=== PATIENT | male | born 1980 | race Caucasian/White ===

== ENCOUNTER → 2016-07-28 | Outpatient (CLI) | payer OTHER ==
--- NOTE | 2016-07-28 17:47 | XR ---
EXAMINATION TYPE: XR tibia fibula RT DATE OF EXAM: 07/28/2016 5:43 PM CLINICAL HISTORY: Contusion injury today with pain TECHNIQUE: Two views of the right leg are obtained. COMPARISON: None. FINDINGS: There is no acute fracture or dislocation seen in the right tibia or fibula. The right kn ee and ankle joints appear within normal limits. The overlying soft tissue appears unremarkable. IMPRESSION: There is no acute fracture or dislocation seen in the right tibia or fibula.
== END | disposition home or self-care (01) ==
LOC: RADXRMAIN 17:29
PROVIDERS: ATTEND Emergency Medicine
DX: S80.11XA Contusion of right lower leg, initial encounter (principal)

== ENCOUNTER 2017-09-24 14:03 | Emergency (ER) | payer BC ==
--- NOTE | 2017-09-24 14:26 | ED ---
General Adult HPI - General Chief complaint: Psychiatric Symptoms Stated complaint: Mental Health Time Seen by Provider: 09/24/17 14:21 Source: patient, RN notes reviewed Mode of arrival: ambulatory Limitations: no limitations - History of Present Illness Initial comments: Patient 37-year-old male presented to the emergency room today with a chief complaint of suicidal ideation. Patient does not that he was driving on the road. This had thoughts of feeling off. Patient states they're very vivid. Patient states she's never had such lots so clear before. Patient denies any homicidal thoughts or plans. He denies any other complaints. He does admit that it's been a year or 2 since he has seen a psychiatrist. He states he gets his medications from his family physician. He denies any other complaints or symptoms. Patient denies any recent fever, chills, shortness of breath, chest pain, back pain, abdominal pain, nausea or vomiting, numbness or tingling, dysuria or hematuria, changes, or any other complaints. - Related Data Home Medications Medication Instructions Recorded Confirmed Atorvastatin Calcium [Lipitor] 40 mg PO HS 09/24/17 09/24/17 Fenofibrate [Lofibra] 160 mg PO DAILY 09/24/17 09/24/17 Sertraline [Zoloft] 100 mg PO DAILY 09/24/17 09/24/17 Allergies Allergy/AdvReac Type Severity Reaction Status Date / Time niacin AdvReac flushing Verified 09/24/17 14:38 Review of Systems ROS Statement: Those systems with pertinent positive or pertinent negative responses have been documented in the HPI. ROS Other: All systems not noted in ROS Statement are negative. Past Medical History Past Medical History: No Reported History History of Any Multi-Drug Resistant Organisms: None Reported Past Surgical History: Cholecystectomy Past Psychological History: Depression Smoking Status: Never smoker Past Alcohol Use History: Occasional Past Drug Use History: None Reported General Exam - General Exam Comments Initial Comments: General: The patient is awake and alert, in no distress, and does not appear acutely ill. Eye: extra-ocular movements are intact. No nystagmus. There is normal conjunctiva bilaterally. No signs of icterus. Ears, nose, mouth and throat: There are moist mucous membranes and no oral lesions. Neck: The neck is supple, there is no tenderness or JVD. Cardiovascular: There is a regular rate and rhythm. No murmur, rub or gallop is appreciated. Respiratory: Lungs are clear to auscultation, respirations are non-labored, breath sounds are equal. No wheezes, stridor, rales, or rhonchi. Musculoskeletal: Normal ROM, no tenderness. Strength 5/5. Sensation intact. Neurological: A&O x 3. CN II-XII intact, There are no obvious motor or sensory deficits. Coordination appears grossly intact. Speech is normal. Skin: Skin is warm and dry and no rashes or lesions are noted. Psychiatric: Cooperative. Limitations: no limitations Course Vital Signs 09/24/17 14:12 Temperature 98.7 F Pulse Rate 94 Respiratory 18 Rate Blood Pressure 154/85 O2 Sat by Pulse 96 Oximetry Medical Decision Making - Medical Decision Making Patient was seen by mental health through the emergency room. They have recommendation the follow up all patient. Patient agreeable. Patient will be discharged advised return if any symptoms increase worsen. - Lab Data Lab Results 09/24/17 Range/Units 14:46 Urine Opiates Screen Not Detected (NotDetected) Ur Oxycodone Screen Not Detected (NotDetected) Urine Methadone Screen Not Detected (NotDetected) Ur Propoxyphene Screen Not Detected (NotDetected) Ur Barbiturates Screen Not Detected (NotDetected) U Tricyclic Antidepress Not Detected (NotDetected) Ur Phencyclidine Scrn Not Detected (NotDetected) Ur Amphetamines Screen Not Detected (NotDetected) U Methamphetamines Scrn Not Detected (NotDetected) U Benzodiazepines Scrn Not Detected (NotDetected) Urine Cocaine Screen Not Detected (NotDetected) U Marijuana (THC) Screen Not Detected (NotDetected) Disposition Clinical Impression: Depression Disposition: HOME SELF-CARE Condition: Good Instructions: Depression (ED) Additional Instructions: Please follow-up with mental health as discussed here in the emergency room. Please return if any symptoms increase or worsen or for any other concerns. Is patient prescribed a controlled substance at d/c from ED?: No Referrals: Inocencio Lindsay MD [Primary Care Provider] - 1-2 days Time of Disposition: 15:58
[2017-09-24 15:10] LABS: Amphetamine Screen,Urine Not Detected (NotDetected); Barbiturate Screen,Urine Not Detected (NotDetected); Benzodiazepines Screen,Urine Not Detected (NotDetected); Cocaine Screen,Urine Not Detected (NotDetected); Methadone Screen, Urine Not Detected (NotDetected); Opiate Screen,Urine Not Detected (NotDetected); Oxycodone Screen, Urine Not Detected (NotDetected); Phencyclidine Screen,Urine Not Detected (NotDetected); Tricyclic Antidepressant,Urine Not Detected (NotDetected); Urn Cannabinoid Scrn Not Detected (NotDetected)
[2017-09-24 16:08] VITALS: BP 129/70; PULSE 68; RESP 16; TEMP 97.9
== END 2017-09-24 16:07 | disposition home or self-care (01) ==
LOC: EC 14:03
DX: F32.9 Major depressive disorder, single episode, unspecified (principal); R45.851 Suicidal ideations; Z79.899 Other long term (current) drug therapy; Z88.8 Allergy status to other drugs, medicaments and biological substances
CPT/HCPCS: 80306; 82075; 99284

== ENCOUNTER → 2018-11-24 | Outpatient (CLI) | payer BC ==
--- NOTE | 2018-11-24 20:23 | CONS ---
CONSULTATION DATE OF SERVICE: 11/24/2018 This patient is a 38-year-old gentleman who has been evaluated in [facility] for possible obstructive sleep apnea-hypopnea syndrome. HISTORY OF PRESENT ILLNESS/SLEEP-WAKE EVALUATION: Patient's usual sleep schedule on working days is from midnight until 10 a.m. and on weekends from around 2 a.m. until 12 noon. Sometimes he has problems falling asleep. He has a TV set in the bedroom. He sleeps in different positions with his . He snores and has episodes of stopped breathing during sleep, according to her. He grinds his teeth and has sweating. He wakes up from sleep about 3 times with nocturia. Sometimes he starts to see his dreams right after closing his eyes; possible hypnagogical hallucinations, but no significant daytime sleepiness. [place] Sleepiness Scale is 1. No history of sleep paralysis. PAST MEDICAL HISTORY: Past medical history is positive for: 1. Depression. 2. Anxiety. 3. Hyperlipidemia. 4. Acid reflux. MEDICATIONS: 1. Omeprazole. 2. . 3. Sertraline. 4. Atorvastatin. 5. Fenofibrate. 6. Lorazepam. PAST SURGICAL HISTORY: Cholecystectomy. SOCIAL HISTORY: Negative for smoking. Alcohol consumption occasional. FAMILY HISTORY: Hypertension, heart problems, hyperlipidemia, stroke, acid reflux. REVIEW OF SYSTEMS: Multiple awakenings from sleep. PHYSICAL EXAMINATION: GENERAL: A pleasant gentleman without distress. VITAL SIGNS: BP 144/91, HR 85, RR 16, height 6 feet 2 inches, weight 325 pounds, body mass index 43.9, temperature 98.0, oxygen saturation at room air 94%. HEENT: PERRLA, EOMI. Evaluation of oropharynx showed tongue protrudes midline. Moderate to low position of soft palate. Mallampati II to III. Small oropharyngeal air space. Restriction of nasal breathing. NECK: Supple. No JVD. Thyroid is not palpable. Wide neck; 19-1/4 inches in circumference. LUNGS: Clear to percussion and to auscultation. Good air exchange. No wheezing or rhonchi. HEART: S1, S2 regular. No murmurs, gallops or rubs. ABDOMEN: Obese. EXTREMITIES: No clubbing or cyanosis. PHOTOGRAPHIC INTELLIGENCE OFFICER: Awake, alert, and oriented X3. Cranial nerves 2 to 7 intact. There is no fasciculation or atrophy. noted. No focal deficits observed. IMPRESSION: 1. Snoring, witnessed episodes of stopped breathing during sleep, low position of soft palate, wide neck, restriction of nasal breathing; obstructive sleep apnea-hypopnea syndrome. 2. Obesity; body mass index 43.9. 3. Acid reflux. 4. History of depression. 5. History of anxiety. 6. Hyperlipidemia. 7. Status post cholecystectomy. PLAN: 1. Polysomnography for evaluation of patient's breathing during sleep. 2. CPAP/BiPAP titration if sleep study confirms obstructive sleep apnea-hypopnea syndrome. 3. Preferable position during sleep on the side. 4. No driving if patient feels any sleepiness. 5. I will see patient for follow up visit to explain results of testing and following plan. Thank you very much for referring this patient for consultation. Sincerely, Eb Yi MD, PhD, FAASM Diplomat of [employer] Maternal Fetal Physician of [facility] [place] MMODL / IJN: [id number] /
== END | disposition home or self-care (01) ==
LOC: SLEEP 13:25
PROVIDERS: ATTEND Internal Medicine
DX: G47.33 Obstructive sleep apnea (adult) (pediatric) (principal); E66.9 Obesity, unspecified; Z68.41 Body mass index [BMI] 40.0-44.9, adult; E78.5 Hyperlipidemia, unspecified; J98.8 Other specified respiratory disorders; K21.9 Gastro-esophageal reflux disease without esophagitis; Z86.59 Personal history of other mental and behavioral disorders; Z90.49 Acquired absence of other specified parts of digestive tract; Z99.89 Dependence on other enabling machines and devices; Z79.899 Other long term (current) drug therapy
CPT/HCPCS: 99211

== ENCOUNTER 2024-10-12 20:06 | Emergency (ER) | payer OTHER, BC ==
[2024-10-12 20:14] VITALS: BP 126/81; PULSE 91; RESP 18; TEMP 98.1
[2024-10-12] MEDS ORDERED: DIPH,PERTUS(ACELL)TETVAC-LF 0.5 ML VIAL IM ONE (20:54)
--- NOTE | 2024-10-12 20:55 | ED ---
Wound/Laceration HPI - General Chief Complaint: Wound/Laceration Stated Complaint: [facility], leg injury Time Seen by Provider: 10/12/24 20:15 Source: patient, RN notes reviewed Mode of arrival: ambulatory Limitations: no limitations - History of Present Illness Initial Comments: 44-year-old male presented to the ER for evaluation of a laceration. Patient states he was attempting to cut something at work with a supervisor transferring and boxing. He states he accidentally cut his left inner thigh in doing so. He reports bleeding is currently controlled after compression and his coworkers applied Steri-Strips prior to transportation to the emergency department. Tetanus status unknown. Patient denies any paresthesias or limited range of motion to the left lower extremity. No other injuries or complaints - Related Data Home Medications Medication Instructions Recorded Confirmed Atorvastatin Calcium [Lipitor] 40 mg PO HS 09/24/17 09/24/17 Fenofibrate [Lofibra] 160 mg PO DAILY 09/24/17 09/24/17 Sertraline [Zoloft] 100 mg PO DAILY 09/24/17 09/24/17 Allergies Allergy/AdvReac Type Severity Reaction Status Date / Time niacin AdvReac flushing Verified 09/24/17 14:38 Review of Systems ROS Statement: Those systems with pertinent positive or pertinent negative responses have been documented in the HPI. ROS Other: All systems not noted in ROS Statement are negative. Past Medical History Past Medical History: No Reported History History of Any Multi-Drug Resistant Organisms: None Reported Past Surgical History: Cholecystectomy Past Psychological History: Depression Past Alcohol Use History: Occasional Past Drug Use History: None Reported General Exam Limitations: no limitations General appearance: alert, in no apparent distress Respiratory exam: Present: normal lung sounds bilaterally. Absent: respiratory distress, wheezes, rales, rhonchi, stridor Cardiovascular Exam: Present: regular rate, normal rhythm, normal heart sounds. Absent: systolic murmur, diastolic murmur, rubs, gallop, clicks Extremities exam: Present: normal inspection, full ROM, normal capillary refill. Absent: tenderness, pedal edema, joint swelling, calf tenderness Neurological exam: Present: alert, oriented X3, CN II-XII intact Skin exam: Present: warm, dry, intact, normal color, other (1 cm superficial laceration left inner thigh. No active bleeding. Deep structures intact. No foreign bodies). Absent: rash Course Vital Signs 10/12/24 20:09 Temperature 98.1 F Pulse Rate 91 Respiratory 18 Rate Blood Pressure 126/81 O2 Sat by Pulse 97 Oximetry Medical Decision Making - Medical Decision Making Was pt. sent in by a medical professional or institution (FROYLAN Casarez, [employer], urgent care, hospital, or usp...) When possible be specific @ -No Did you speak to anyone other than the patient for history (EMS, parent, family, police, friend...)? What history was obtained from this source @ -No Did you review nursing and triage notes (agree or disagree)? Why? @ -I reviewed and agree with nursing and triage notes Were old charts reviewed (outside hosp., previous admission, EMS record, old EKG, old radiological studies, urgent care reports/EKG's, usp records)? Report findings @ -No old charts were reviewed Differential Diagnosis (chest pain, altered mental status, abdominal pain women, abdominal pain men, vaginal bleeding, weakness, fever, dyspnea, syncope, headache, dizziness, GI bleed, back pain, seizure, CVA, palpatations, mental health, musculoskeletal)? @ -[Laceration, abrasion, contusion, avulsion, foreign body this list is not meant to be all-inclusive EKG interpreted by me (3pts min.). @ -None done X-rays interpreted by me (1pt min.). @ -None done CT interpreted by me (1pt min.). @ -None done U/S interpreted by me (1pt. min.). @ -None done What testing was considered but not performed or refused? (CT, X-rays, U/S, labs)? Why? @ -None What meds were considered but not given or refused? Why? @ -None Did you discuss the management of the patient with other professionals (professionals i.e. FROYLAN Casarez, [employer]IGNER, lab, RT, psych nurse, social staff worker, beam dyer operator, teacher, correctional probation officer, business case analyst)? Give summary @ -No Was smoking cessation discussed for >3mins.? @ -No Was critical care preformed (if so, how long)? @ -No Were there social determinants of health that impacted care today? How? (Anupam elessness, low income, unemployed, alcoholism, drug addiction, transportation, low edu. Level, literacy, decrease access to med. care, custodial, rehab)? @ -No Was there de-escalation of care discussed even if they declined (Discuss DNR or withdrawal of care, Hospice)? DNR status @ -No What co-morbidities impacted this encounter? (DM, HTN, Smoking, COPD, CAD, Cancer, CVA, ARF, Chemo, Hep., AIDS, mental health diagnosis, sleep apnea, morbid obesity)? @ -None Was patient admitted / discharged? Hospital course, mention meds given and route, prescriptions, significant lab abnormalities, going to OR and other pertinent info. @ -Discharge. 44-year-old male presented the ER for evaluation of laceration. Vital signs stable. Patient is neurovascularly intact with full active range of motion of bilateral lower extremities. Exam remarkable for 1 cm superficial laceration to left inner thigh, wound does not extend through dermis. There is no active bleeding. Deep structures are intact and no foreign bodies identified. Tetanus updated emergency department. Wound will be approximated with Steri-Strips as I do not believe sutures are appropriate given size and depth of wound. Wound care discussed. Return parameters discussed. Patient discharged in stable condition with follow-up with PCP. Patient verbally expressed understanding and agreement with care plan. Case discussed with ED attending Dr. Perdomo Undiagnosed new problem with uncertain prognosis? @ -No Drug Therapy requiring intensive monitoring for toxicity (Heparin, Nitro, Insulin, Cardizem)? @ -No Were any procedures done? @ -No Diagnosis/symptom? @ -Laceration Acute, or Chronic, or Acute on Chronic? @ -Acute Uncomplicated (without systemic symptoms) or Complicated (systemic symptoms)? @ -Uncomplicated Side effects of treatment? @ -No Exacerbation, Progression, or Severe Exacerbation? @ -No Poses a threat to life or bodily function? How? (Chest pain, [place], [place], pneumonia, PE, COPD, DKA, ARF, appy, cholecystitis, CVA, Diverticulitis, Homicidal, Suicidal, threat to staff... and all critical care pts) @ -No Disposition Clinical Impression: Laceration Disposition: HOME SELF-CARE Condition: Stable Instructions (If sedation given, give patient instructions): Acute Wound Care (ED) Additional Instructions: Keep area clean and dry. Monitor for signs infection including surrounding redness, swelling, increase in pain or if purulent drainage. Return to the ER for any new or worsening concerns. Otherwise follow-up with PCP. Is patient prescribed a controlled substance at d/c from ED?: No Referrals: Inocencio Lindsay MD [Primary Care Provider] - 1-2 days Time of Disposition: 20:55
== END 2024-10-12 21:53 | disposition home or self-care (01) ==
LOC: EC 20:06
DX: S71.112A Laceration without foreign body, left thigh, initial encounter (principal); Z88.8 Allergy status to other drugs, medicaments and biological substances; W26.9XXA Contact with unspecified sharp object(s), initial encounter; Y99.0 Civilian activity done for income or pay
CPT/HCPCS: 99282